=== PATIENT | female | born 1965 | race African-American/Black ===

== ENCOUNTER 2016-11-14 13:51 | Emergency (ER) | payer MEDICARE, OTHER ==
[~2016-11-14] VITALS: Ht 170.2 cm; Wt 90.0 kg
[~2016-11-14 13:51] MED LIST: ALBUAER3 INH; AMLO5TAB2 PO; BACL10TA PO; CLON0.5T PO; COZA100T PO; DAPA1TAB3 PO; DYAZ37.5 PO; FLUT50SP EACH NARE; GABA400C5 PO; HYDR-3366 PO; KEPP10002 PO; LANTUS2P SQ; LISI-515 PO; SIMV40TA PO; VORT1TAB PO
[2016-11-14 13:54] VITALS: BP 145/88; PULSE 70; RESP 20; TEMP 97.9; O2SAT 98
--- NOTE | 2016-11-14 14:18 | PD ---
Physical Exam Date Seen by Provider: Nov 14, 2016 Time Seen by Provider: 14:14 Narrative 51-year-old Afro-[place] diabetic female is emergency part with multiple skin complaints. Patient has a blister on her right lower stomach, as well as multiple "knots" to the scalp, both axilla, and pubic area. Patient denies fever, chills, but is concerned that she is diabetic. She is not sure she's had any drainage from any of them. No history of MRSA in the past. Pain is a 7 out of 10. Urine is ordered. Vital signs are stable. Patient is awaiting med bed placement. Data Data Last Documented VS Vital Signs Date Time Temp Pulse Resp B/P (MAP) Pulse Ox O2 Delivery O2 Flow Rate FiO2 11/14/16 13:54 97.9 70 20 145/88 (107) 98 Room Air [facility] Medical Record Reviewed: Yes Supervised Visit with ALEK: Yes Condition: Stable Jesús Tan Nov 14, 2016 14:18
[2016-11-14] MEDS ORDERED: BENA25CA4 PO (15:10)
--- NOTE | 2016-11-14 15:23 | PD ---
HPI Chief Complaint: Skin Problem Time Seen by Provider: 14:45 Travel History International Travel<30 days: No Contact w/Intl Traveler<30days: No Traveled to known affect area: No History of Present Illness HPI 51-year-old -Ni[place] female patient presents to emergency department for evaluation of skin concerns that recently populated. Patient has 1 papule in each axilla. The papules appears to have a ruelas in bilateral axilla. The papules are small and itchy in nature. Patient has another small papule on the right lateral aspect of the frontal portion of the scalp that is also very itchy in nature. There are no signs or symptoms of infection, including warmth, erythema, swelling or purulent drainage. Patient has what appears to be a sebaceous cyst in the right lower quadrant of the abdomen. This sebaceous cysts has no signs or symptoms of infection, erythema, warmth, swelling or purulent drainage. Patient states ate she does have a history of diabetes and that is what is concerning her with these new skin complaints. Patient denies any history of MRSA. Patient denies any chest pain, shortness breath, fevers, chills, malaise, abdominal pain, nausea, vomiting, diarrhea or lightheadedness. PFSH Past Medical History Arthritis: Yes Asthma: Yes Blood Disorders: No Anxiety: Yes Depression: Yes Cancer: No Cardiovascular Problems: Yes High Cholesterol: Yes Diabetes: Yes Patient Takes Glucophage: No Endocrine: Yes Gastrointestinal Disorders: Yes GERD: Yes Glaucoma: No Genitourinary: No Hepatitis: No Hiatal Hernia: No Hypertension: Yes Immune Disorder: No Medical other: Yes (GERD) Musculoskeletal: Yes Neurologic: No Psychiatric: Yes Reproductive: No Respiratory: Yes Thyroid Disease: No Tetanus Vaccination: < 5 Years Influenza Vaccination: No ?: Not Menopausal: Yes Past Surgical History Abdominal Surgery: No Cardiac Surgery: No Ear Surgery: No Endocrine Surgery: No Eye Surgery: No Genitourinary Surgery: No Gynecologic Surgery: Yes (hysterectomy) Oral Surgery: No Pacemaker: No Thoracic Surgery: No Other Surgery: Yes Social History Alcohol Use: No Tobacco Use: No (quit 10 years ago) Substance Use: No Allergies-Medications (Allergen,Severity, Reaction): Coded Allergies: lisinopril (Verified Adverse Reaction, Intermediate, COUGH, 11/14/16) Reported Meds & Prescriptions Reported Meds & Active Scripts Active Reported Trintellix (Vortioxetine) 5 Mg Tab 5 Mg PO DAILY Simvastatin 40 Mg Tab 40 Mg PO HS Lantus Inj (Insulin Glargine) 100 Unit/Ml Inj 40 SQ BID Keppra (Levetiracetam) 1,000 Mg Tab 1,000 Mg PO BID Fluticasone Nasal [place] 50 Mcg/Act Naspr 50 Mcg EACH NARE BID 50 mcg/spray Farxiga (Dapagliflozin) 10 Mg Tab 10 Mg PO DAILY Clonazepam 0.5 Mg Tab 0.5 Mg PO DAILY Baclofen 10 Mg Tab 10 Mg PO HS PRN Amlodipine (Amlodipine Besylate) 5 Mg Tab 5 Mg PO BID Dyazide (Triamterene-Hydrochlorothiazide) 37.5-25 Mg Cap 1 Cap PO DAILY Cozaar (Losartan Potassium) 100 Mg Tab 100 Mg PO DAILY Lisinopril 20 Mg Tab 40 Mg PO DAILY [place] (Hydrocodone-Acetaminophen) 10-325 Mg Tab 1 Tab PO BID PRN Gabapentin 400 Mg Cap 400 Cap PO BID Proair Hfa 8.5 GM Inh (Albuterol Sulfate) 90 Mcg/Act Aer 2 Puff INH 2 PUFFS PRIOR TO EXERCISE Review of Systems Except as stated in HPI: all other systems reviewed are Neg Physical Exam Narrative GENERAL: Well-nourished well-developed 51-year-old -[place] female in no acute distress SKIN: Focused skin assessment warm/dry. Single papule ruelas noted in bilateral axilla. Single papule ruelas noted in the right lateral aspect of the frontal region of the scalp. Sebaceous cyst noted to right lower abdominal region. No signs or symptoms of infection in the skin or cellulitis. HEAD: Atraumatic. Normocephalic. EYES: Pupils equal and round. No scleral icterus. No injection or drainage. ENT: No nasal bleeding or discharge. Mucous membranes pink and moist. NECK: Trachea midline. No JVD. CARDIOVASCULAR: Regular rate and rhythm. No murmur appreciated. RESPIRATORY: No accessory muscle use. Clear to auscultation. Breath sounds equal bilaterally. GASTROINTESTINAL: Abdomen soft, non-tender, nondistended. Hepatic and splenic margins not palpable. MUSCULOSKELETAL: No obvious deformities. No clubbing. No cyanosis. No edema. NEUROLOGICAL: Awake and alert. No obvious cranial nerve deficits. Motor grossly within normal limits. Normal speech. PSYCHIATRIC: Appropriate mood and affect; insight and judgment normal. Data Data Last Documented VS Vital Signs Date Time Temp Pulse Resp B/P (MAP) Pulse Ox O2 Delivery O2 Flow Rate FiO2 11/14/16 13:54 97.9 70 20 145/88 (107) 98 Room Air Orders Orders Urinalysis - C+S If Indicated (11/14/16 14:18) MDM Medical Decision Making Medical Screen Exam Complete: Yes Emergency Medical Condition: Yes Medical Record Reviewed: Yes Interpretation(s) Afebrile, no tachycardia Differential Diagnosis Differential diagnosis includes but are not limited to bug bites, closed comedones, contact dermatitis, abscess, cellulitis Narrative Course 51-year-old female in no acute distress presents to the emergency department for evaluation of multiple skin complaints. Patient states it is only medical with a since she first noticed the papules. She has one papule that appears to have a ruelas in each axilla. She also has one papule in the right lateral aspect of the frontal portion of the scalp. The patient describes these papules is itchy in nature. There are no signs or symptoms of infection at this time. Patient also has a sebaceous cyst to her right lower abdomen that appeared around the same time as the papules. There is no signs or symptoms of infection with a sebaceous cysts at this time. Patient was concerned with these new skin complaints due to her history of diabetes. Patient instructed not to scratch these papules due to the increased risk of infection. Patient denies any chest pain, shortness breath, fevers, chills, malaise, abdominal pain , nausea, vomiting or diarrhea. Patient will be discharged home with a prescription for Benadryl and instructions to use calamine lotion for its relief until the papules heals. Patient instructed to return the emergency Department with any worsening condition or signs or symptoms of infection. Patient agrees with this plan of care. Diagnosis Primary Impression: Acute papular eruption of skin Referrals: Primary Care Physician Patient Instructions: General Instructions, Itchy Skin (DC) Additional Instructions: Do not scratch these papules as that will increase the risk for infection. Take Benadryl as directed as needed for itch relief until papules heal. Use calamine lotion for itch relief until papules heal. Avoid heat to the itchy papules as heat may increase itchy sensation. Cool compresses can help to relieve itch and locally calm the skin. Return to the emergency Department with any worsening condition or signs or symptoms of infection. Med/Other Pt SpecificInfo: Prescription(s) given Scripts Diphenhydramine HCl (Benadryl Allergy) 25 Mg Cap 1 CAP PO Q4-6H Y for ITCHING, #10 Prov: Priti Zhou 11/14/16 Disposition: 01 DISCHARGE HOME Condition: Stable Priti Zhou Nov 14, 2016 15:23
[2016-11-14 15:26] VITALS: BP 138/85; TEMP 97.8
== END 2016-11-14 15:28 | disposition home or self-care (01) ==
LOC: NEPD 13:51
DX: R23.8 Other skin changes (principal); E11.9 Type 2 diabetes mellitus without complications; Z79.4 Long term (current) use of insulin
CPT/HCPCS: 99283

== ENCOUNTER 2017-03-23 09:44 | Emergency (ER) | payer MEDICARE, OTHER ==
[~2017-03-23] VITALS: Ht 167.6 cm; Wt 95.0 kg
[~2017-03-23 09:44] MED LIST changes: +BENA25CA4 PO
[2017-03-23 09:46] VITALS: BP 177/90; PULSE 63; RESP 17; TEMP 98; O2SAT 100
[2017-03-23] MEDS ORDERED: MELO15TA20 PO (11:48)
[2017-03-23] MEDS ORDERED: ROBA750T PO (11:48)
--- NOTE | 2017-03-23 11:49 | PD ---
HPI Chief Complaint: Back/ Neck Pain or Injury Time Seen by Provider: 11:26 Travel History International Travel<30 days: No Contact w/Intl Traveler<30days: No Traveled to known affect area: No History of Present Illness HPI This is a 51-year-old female here with low back pain dating down into both legs. Duration 3 days. She reports history of chronic low back pain. This is usually managed by ibuprofen or Aleve. She reports this is similar to her chronic back pain just more severe. She denies fever, chills, incontinence, saddle anesthesia, paresthesia or weakness of the extremities. It is moderate. Worsened by movement and slightly improved with rest. PFSH Past Medical History Arthritis: Yes Asthma: Yes Blood Disorders: No Anxiety: Yes Depression: Yes Cancer: No Cardiovascular Problems: Yes (HTN) High Cholesterol: Yes Diabetes: Yes (TYPE 2) Patient Takes Glucophage: No Endocrine: Yes Gastrointestinal Disorders: Yes GERD: Yes Glaucoma: No Genitourinary: No Hepatitis: No Hiatal Hernia: No Hypertension: Yes Immune Disorder: No Medical other: Yes (GERD) Musculoskeletal: Yes Neurologic: No Psychiatric: Yes Reproductive: No Respiratory: Yes Thyroid Disease: No Tetanus Vaccination: Unknown ?: Not Menopausal: Yes Past Surgical History Abdominal Surgery: No Cardiac Surgery: No Ear Surgery: No Endocrine Surgery: No Eye Surgery: No Genitourinary Surgery: No Gynecologic Surgery: Yes (hysterectomy) Oral Surgery: No Pacemaker: No Thoracic Surgery: No Other Surgery: Yes Social History Alcohol Use: No Tobacco Use: No (quit 10 years ago) Substance Use: No Allergies-Medications (Allergen,Severity, Reaction): Coded Allergies: lisinopril (Verified Adverse Reaction, Intermediate, COUGH, 03/23/17) Reported Meds & Prescriptions Reported Meds & Active Scripts Active Benadryl Allergy (Diphenhydramine HCl) 25 Mg Cap 1 Cap PO Q4-6H PRN Reported Trintellix (Vortioxetine) 5 Mg Tab 5 Mg PO DAILY Simvastatin 40 Mg Tab 40 Mg PO HS Lantus Inj (Insulin Glargine) 100 Unit/Ml Inj 40 SQ BID Keppra (Levetiracetam) 1,000 Mg Tab 1,000 Mg PO BID Fluticasone Nasal [place] 50 Mcg/Act Naspr 50 Mcg EACH NARE BID 50 mcg/spray Farxiga (Dapagliflozin) 10 Mg Tab 10 Mg PO DAILY Clonazepam 0.5 Mg Tab 0.5 Mg PO DAILY Baclofen 10 Mg Tab 10 Mg PO HS PRN Amlodipine (Amlodipine Besylate) 5 Mg Tab 5 Mg PO BID Dyazide (Triamterene-Hydrochlorothiazide) 37.5-25 Mg Cap 1 Cap PO DAILY Cozaar (Losartan Potassium) 100 Mg Tab 100 Mg PO DAILY Lisinopril 20 Mg Tab 40 Mg PO DAILY [place] (Hydrocodone-Acetaminophen) 10-325 Mg Tab 1 Tab PO BID PRN Gabapentin 400 Mg Cap 400 Cap PO BID Proair Hfa 8.5 GM Inh (Albuterol Sulfate) 90 Mcg/Act Aer 2 Puff INH 2 PUFFS PRIOR TO EXERCISE Review of Systems Except as stated in HPI: all other systems reviewed are Neg General / Constitutional: No: Fever Physical Exam Narrative GENERAL: Alert and well-appearing 51-year-old female SKIN: Warm and dry. HEAD: Normocephalic. EYES:No injection or drainage. NECK: Supple, trachea midline. GASTROINTESTINAL: Abdomen soft, non-tender, nondistended. MUSCULOSKELETAL: No cyanosis, or edema. Normal strength and sensation in lower extremities. Patient is a . BACK: + Tenderness to the lumbar paraspinous musculature. No point tenderness of the midline spine. Without obvious deformity. No CVA tenderness. Data Data Last Documented VS Vital Signs Date Time Temp Pulse Resp B/P (MAP) Pulse Ox O2 Delivery O2 Flow Rate FiO2 03/23/17 09:46 98.0 63 17 177/90 (119) 100 MDM Medical Decision Making Medical Screen Exam Complete: Yes Emergency Medical Condition: Yes Differential Diagnosis Lumbar strain, degenerative disc disease, acute on chronic low back pain Narrative Course [id number] female here with acute on chronic low back pain. She has a normal neurologic exam. Vital signs are stable. Patient be treated for lumbar strain Diagnosis Primary Impression: Low back pain Qualified Codes: M54.5 - Low back pain Referrals: Pain Management Additional Instructions: Medications as prescribed. Follow-up with her primary doctor. Use ice or heat for comfort. Scripts Methocarbamol (Robaxin) 750 Mg Tab 750 MG PO QID for Muscle Spasm, #14 TAB 0 Refills Prov: Kenya Pelaez 03/23/17 Meloxicam (Meloxicam) 15 Mg Tab 15 MG PO DAILY for Arthritis Pain, #30 TAB 0 Refills Prov: Kenya Pelaez 03/23/17 Disposition: 01 DISCHARGE HOME Condition: Stable Kenya Pelaez Mar 23, 2017 11:49
[2017-03-23] MEDS ORDERED: KETOROLAC TROMETHAMINE 60 MG/2 ML (IM) VIAL IM ONE (12:00)
== END 2017-03-23 12:07 | disposition home or self-care (01) ==
LOC: NEPK 09:44
DX: M54.5 Low back pain (principal); G89.29 Other chronic pain; E11.9 Type 2 diabetes mellitus without complications; E78.00 Pure hypercholesterolemia, unspecified; I10 Essential (primary) hypertension; K21.9 Gastro-esophageal reflux disease without esophagitis; J45.909 Unspecified asthma, uncomplicated; Z79.4 Long term (current) use of insulin; Z87.891 Personal history of nicotine dependence
CPT/HCPCS: 96372; 99284; J1885

== ENCOUNTER 2017-05-04 18:22 | Emergency (ER) | payer MEDICARE, OTHER ==
[~2017-05-04 18:22] MED LIST changes: +MELO15TA20 PO; +ROBA750T PO
[2017-05-04 18:30] VITALS: BP 177/87; PULSE 79; RESP 18; TEMP 99.4; O2SAT 99
--- NOTE | 2017-05-04 19:17 | RADRPT ---
EXAM DATE/TIME: 05/04/2017 18:56 [facility] COMPARISON: No previous studies available for comparison. INDICATIONS : Headaches starting Wednesday,frontal area RADIATION DOSE: 36.46 CTDIvol (mGy) MEDICAL HISTORY : Diabetes mellitus type 2. Cardiovascular disease Hypertension.Ulcer SURGICAL HISTORY : Hysterectomy. ENCOUNTER: Initial ACUITY: 1 day PAIN SCALE: 5/10 LOCATION: Bilateral cranial TECHNIQUE: Multiple contiguous axial images were obtained of the head. Using automated exposure control and adj ustment of the mA and/or kV according to patient size, radiation dose was kept as low as reasonably a chievable to obtain optimal diagnostic quality images. DICOM format image data is available electro nically for review and comparison. FINDINGS: CEREBRUM: The ventricles are normal for age. No evidence of midline shift, mass lesion, hemorrhage or acute in farction. No extra-axial fluid collections are seen. POSTERIOR FOSSA: The cerebellum and brainstem are intact. The 4th ventricle is midline. The cerebellopontine angle i s unremarkable. EXTRACRANIAL: The visualized portion of the orbits is intact. Visualized sinuses and mastoid air cells are clear. SKULL: The calvaria is intact. No evidence of skull fracture. CONCLUSION: Negative noncontrast head CT. Rey Wells MD on May 04, 2017 at 19:14 Board Certified Radiologist. This report was verified electronically.
--- NOTE | 2017-05-04 20:34 | PD ---
HPI Chief Complaint: Headache Time Seen by Provider: 18:29 Travel History International Travel<30 days: No Contact w/Intl Traveler<30days: No Traveled to known affect area: No History of Present Illness HPI Pt is a 51-year-old female presented to the emergency for evaluation of headache , nausea, diaphoresis. Patient states the headache started Wednesday after she had a seizure. Patient has a history of seizures, she reports compliance with her medications. Patient states she is on Keppra and Vimpat. She states that she has been under increased stress since the in the family on Wednesday. Symptom onset was sudden, there are no alleviating factors. Symptoms severity is moderate. She denies any weakness, numbness, speech abnormality, photophobia. PFSH Past Medical History Arthritis: Yes Asthma: Yes Blood Disorders: No Anxiety: Yes Depression: Yes Cancer: No Cardiovascular Problems: Yes (HTN) High Cholesterol: Yes Diabetes: Yes (TYPE 2) Endocrine: Yes Gastrointestinal Disorders: Yes GERD: Yes Glaucoma: No Genitourinary: No Hepatitis: No Hiatal Hernia: No Hypertension: Yes Immune Disorder: No Musculoskeletal: Yes Neurologic: No Psychiatric: Yes Reproductive: No Respiratory: Yes Thyroid Disease: No Menopausal: Yes Past Surgical History Abdominal Surgery: No Cardiac Surgery: No Ear Surgery: No Endocrine Surgery: No Eye Surgery: No Genitourinary Surgery: No Gynecologic Surgery: Yes (hysterectomy) Oral Surgery: No Pacemaker: No Thoracic Surgery: No Other Surgery: Yes Social History Alcohol Use: No Tobacco Use: No (quit 10 years ago) Substance Use: No Allergies-Medications (Allergen,Severity, Reaction): Coded Allergies: lisinopril (Verified Adverse Reaction, Intermediate, COUGH, 03/23/17) Reported Meds & Prescriptions Reported Meds & Active Scripts Active Robaxin (Methocarbamol) 750 Mg Tab 750 Mg PO QID Meloxicam 15 Mg Tab 15 Mg PO DAILY Benadryl Allergy (Diphenhydramine HCl) 25 Mg Cap 1 Cap PO Q4-6H PRN Reported Trintellix (Vortioxetine) 5 Mg Tab 5 Mg PO DAILY Simvastatin 40 Mg Tab 40 Mg PO HS Lantus Inj (Insulin Glargine) 100 Unit/Ml Inj 40 SQ BID Keppra (Levetiracetam) 1,000 Mg Tab 1,000 Mg PO BID Fluticasone Nasal [place] 50 Mcg/Act Naspr 50 Mcg EACH NARE BID 50 mcg/spray Farxiga (Dapagliflozin) 10 Mg Tab 10 Mg PO DAILY Clonazepam 0.5 Mg Tab 0.5 Mg PO DAILY Baclofen 10 Mg Tab 10 Mg PO HS PRN Amlodipine (Amlodipine Besylate) 5 Mg Tab 5 Mg PO BID Dyazide (Triamterene-Hydrochlorothiazide) 37.5-25 Mg Cap 1 Cap PO DAILY Cozaar (Losartan Potassium) 100 Mg Tab 100 Mg PO DAILY Lisinopril 20 Mg Tab 40 Mg PO DAILY [place] (Hydrocodone-Acetaminophen) 10-325 Mg Tab 1 Tab PO BID PRN Gabapentin 400 Mg Cap 400 Cap PO BID Proair Hfa 8.5 GM Inh (Albuterol Sulfate) 90 Mcg/Act Aer 2 Puff INH 2 PUFFS PRIOR TO EXERCISE Review of Systems Except as stated in HPI: all other systems reviewed are Neg Eyes: No: Photophobia HENT: Positive: Headaches, No: Neck Pain Cardiovascular: No: Chest Pain or Discomfort Respiratory: No: Shortness of Breath Gastrointestinal: Positive: Nausea Neurologic: Positive: Seizures Physical Exam Narrative GENERAL: Well-developed, well-nourished, alert female. Presenting in no acute distress. SKIN: Warm and dry. HEAD: Normocephalic. EYES: No scleral icterus. No injection or drainage. NECK: Supple, trachea midline. No JVD or lymphadenopathy. CARDIOVASCULAR: Regular rate RESPIRATORY:No accessory muscle use. Data Data Last Documented VS Vital Signs Date Time Temp Pulse Resp B/P (MAP) Pulse Ox O2 Delivery O2 Flow Rate FiO2 05/04/17 18:30 99.4 79 18 177/87 (117) 99 Orders Orders Complete Blood Count With Diff (05/04/17 18:33) Ct Brain W/O Iv Contrast(Rout) (05/04/17 ) Comprehensive Metabolic Panel (05/04/17 18:33) Labs Laboratory Tests Test 05/04/17 20:28 White Blood Count 8.5 TH/MM3 Red Blood Count 4.90 MIL/MM3 Hemoglobin 13.1 GM/DL Hematocrit 41.1 % Mean Corpuscular Volume 83.8 FL Mean Corpuscular Hemoglobin 26.8 PG Mean Corpuscular Hemoglobin Concent 31.9 % Red Cell Distribution Width 15.1 % Platelet Count 412 TH/MM3 Mean Platelet Volume 8.9 FL Neutrophils (%) (Auto) 48.0 % Lymphocytes (%) (Auto) 46.3 % Monocytes (%) (Auto) 4.6 % Eosinophils (%) (Auto) 0.7 % Basophils (%) (Auto) 0.4 % Neutrophils # (Auto) 4.1 TH/MM3 Lymphocytes # (Auto) 3.9 TH/MM3 Monocytes # (Auto) 0.4 TH/MM3 Eosinophils # (Auto) 0.1 TH/MM3 Basophils # (Auto) 0.0 TH/MM3 CBC Comment DIFF FINAL Differential Comment Blood Urea Nitrogen 12 MG/DL Creatinine 0.88 MG/DL Random Glucose 122 MG/DL Albumin 4.1 GM/DL Calcium Level 9.6 MG/DL Aspartate Amino Transf (AST/SGOT) 20 U/L Sodium Level 138 MEQ/L Potassium Level 3.8 MEQ/L Chloride Level 101 MEQ/L Carbon Dioxide Level 26.9 MEQ/L Anion Gap 10 MEQ/L Estimat Glomerular Filtration Rate 82 ML/MIN MDM Medical Decision Making Medical Screen Exam Complete: Yes Emergency Medical Condition: Yes Interpretation(s) Laboratory Tests Test 05/04/17 20:28 White Blood Count 8.5 TH/MM3 Red Blood Count 4.90 MIL/MM3 Hemoglobin 13.1 GM/DL Hematocrit 41.1 % Mean Corpuscular Volume 83.8 FL Mean Corpuscular Hemoglobin 26.8 PG Mean Corpuscular Hemoglobin Concent 31.9 % Red Cell Distribution Width 15.1 % Platelet Count 412 TH/MM3 Mean Platelet Volume 8.9 FL Neutrophils (%) (Auto) 48.0 % Lymphocytes (%) (Auto) 46.3 % Monocytes (%) (Auto) 4.6 % Eosinophils (%) (Auto) 0.7 % Basophils (%) (Auto) 0.4 % Neutrophils # (Auto) 4.1 TH/MM3 Lymphocytes # (Auto) 3.9 TH/MM3 Monocytes # (Auto) 0.4 TH/MM3 Eosinophils # (Auto) 0.1 TH/MM3 Basophils # (Auto) 0.0 TH/MM3 CBC Comment DIFF FINAL Differential Comment Blood Urea Nitrogen 12 MG/DL Creatinine 0.88 MG/DL Random Glucose 122 MG/DL Albumin 4.1 GM/DL Calcium Level 9.6 MG/DL Aspartate Amino Transf (AST/SGOT) 20 U/L Sodium Level 138 MEQ/L Potassium Level 3.8 MEQ/L Chloride Level 101 MEQ/L Carbon Dioxide Level 26.9 MEQ/L Anion Gap 10 MEQ/L Estimat Glomerular Filtration Rate 82 ML/MIN Vital Signs Date Time Temp Pulse Resp B/P (MAP) Pulse Ox O2 Delivery O2 Flow Rate FiO2 05/04/17 18:30 99.4 79 18 177/87 (117) 99 Differential Diagnosis CVA versus TIA versus seizure versus metabolic abnormality versus migraine versus other Narrative Course Patient is a 51-year-old female presenting for evaluation of a headache secondary to seizure she experienced on Wednesday. Patient's vital signs are stable, labs and imaging ordered and pending. Patient was called the place and it is no longer found in the emergency department. Patient left AMA. Since labs and imaging were reviewed after she left AMA, CT scan of the brain with no acute abnormality. Labs with no acute findings. Diagnosis Primary Impression: Left against medical advice Sarika Sahu May 04, 2017 20:34
[2017-05-04 21:32] LABS: AUTOMATED NEUTROPHIL # 4.1 TH/MM3 (1.8-7.7); BASOPHIL % 0.4 % (0.0-2.0); EOSINOPHIL # 0.1 TH/MM3 (0-0.4); EOSINOPHIL % 0.7 % (0.0-4.0); HEMATOCRIT 41.1 % (35.0-46.0); HEMOGLOBIN 13.1 GM/DL (11.6-15.3); LYMPH % 46.3 % (9.0-44.0); LYMPHOCYTE # 3.9 TH/MM3 (1.0-4.8); MEAN CELL VOLUME 83.8 FL (80.0-100.0); MEAN CORPUSCULAR HEMOGLOBIN 26.8 PG (27.0-34.0); MEAN CORPUSCULAR HGB CONC 31.9 % (32.0-36.0); MEAN PLATELET VOLUME 8.9 FL (7.0-11.0); MONO % 4.6 % (0.0-8.0); MONOCYTE # 0.4 TH/MM3 (0-0.9); PLATELET COUNT 412 TH/MM3 (150-450); RED CELL DISTRIBUTION WIDTH 15.1 % (11.6-17.2); WHITE BLOOD COUNT 8.5 TH/MM3 (4.0-11.0)
[2017-05-04 21:43] LABS: ALBUMIN 4.1 GM/DL (3.4-5.0); AST (GOT) 20 U/L (15-37); BICARBONATE 26.9 MEQ/L (21.0-32.0); BLOOD UREA NITROGEN 12 MG/DL (7-18); CALCIUM 9.6 MG/DL (8.5-10.1); CHLORIDE 101 MEQ/L (98-107); CREATININE 0.88 MG/DL (0.50-1.00); GLOMERULAR FILTRATION RATE 82 ML/MIN (>89); GLUCOSE,RANDOM 122 MG/DL (74-106); SODIUM (NA) 138 MEQ/L (136-145)
[2017-05-04 21:47] LABS: ALKALINE PHOSPHATASE 164 U/L (45-117); ALT (GPT) 21 U/L (10-53); TOTAL BILIRUBIN ADULT 0.3 MG/DL (0.2-1.0); TOTAL PROTEIN 8.6 GM/DL (6.4-8.2)
== END 2017-05-04 20:26 | disposition left against medical advice (07) ==
LOC: NED 18:22
DX: R51 Headache (principal); E11.9 Type 2 diabetes mellitus without complications; I10 Essential (primary) hypertension; Z79.4 Long term (current) use of insulin; Z87.891 Personal history of nicotine dependence
CPT/HCPCS: 70450; 80053; 85025; 99284

== ENCOUNTER 2017-07-14 19:23 | Emergency (ER) | payer MEDICARE, OTHER ==
[~2017-07-14] VITALS: Ht 167.6 cm; Wt 106.0 kg
[2017-07-14 19:43] VITALS: BP 147/91; PULSE 88; RESP 16; TEMP 98.2; O2SAT 100
[2017-07-14] MEDS ORDERED: ORPHENADRINE INJ 60 MG/2 ML AMP IM ONE (20:45)
[2017-07-14] MEDS ORDERED: KETOROLAC TROMETHAMINE 60 MG/2 ML (IM) VIAL IM ONE (20:45)
[2017-07-14] MEDS ORDERED: DICL50TA PO (20:51)
[2017-07-14] MEDS ORDERED: ROBA750T PO (20:51)
--- NOTE | 2017-07-14 20:52 | PD ---
HPI Chief Complaint: Back/ Neck Pain or Injury Time Seen by Provider: 20:42 Travel History International Travel<30 days: No Contact w/Intl Traveler<30days: No Traveled to known affect area: No History of Present Illness HPI 51-year-old female presents to the emergency department for evaluation of chronic low back pain and chronic right wrist pain. Patient reports history degenerative disc disease and tendinitis to the right arm. She is to undergo surgery by Dr. Ruvalcaba for the right wrist. She is having acute exacerbation of her chronic back pain. She denies a traumatic injury. No fevers or chills. No loss of bowel or bladder control. No saddle anesthesias. Patient took a tramadol approximately 2 hours ago for her pain. Patient also reports history of diabetes, hypertension, seizures. Movement will exacerbate pain. No alleviating factors. Current pain is 10/10 to the lower back that radiates to the bilateral thighs. Mild severity. PFSH Past Medical History Arthritis: Yes Asthma: Yes Blood Disorders: No Anxiety: Yes Depression: Yes Cancer: No Cardiovascular Problems: Yes (HTN) High Cholesterol: Yes Diabetes: Yes (TYPE 2) Endocrine: Yes Gastrointestinal Disorders: Yes GERD: Yes Glaucoma: No Genitourinary: No Hepatitis: No Hiatal Hernia: No Hypertension: Yes Immune Disorder: No Musculoskeletal: Yes Neurologic: No Psychiatric: Yes Reproductive: No Respiratory: Yes Thyroid Disease: No Menopausal: Yes Past Surgical History Abdominal Surgery: No Cardiac Surgery: No Ear Surgery: No Endocrine Surgery: No Eye Surgery: No Genitourinary Surgery: No Gynecologic Surgery: Yes (hysterectomy) Oral Surgery: No Pacemaker: No Thoracic Surgery: No Other Surgery: Yes Social History Alcohol Use: No Tobacco Use: No (quit 10 years ago) Substance Use: No Allergies-Medications (Allergen,Severity, Reaction): Coded Allergies: lisinopril (Verified Adverse Reaction, Intermediate, COUGH, 07/14/17) Reported Meds & Prescriptions Reported Meds & Active Scripts Active Robaxin (Methocarbamol) 750 Mg Tab 750 Mg PO QID Meloxicam 15 Mg Tab 15 Mg PO DAILY Benadryl Allergy (Diphenhydramine HCl) 25 Mg Cap 1 Cap PO Q4-6H PRN Reported Trintellix (Vortioxetine) 5 Mg Tab 5 Mg PO DAILY Simvastatin 40 Mg Tab 40 Mg PO HS Lantus Inj (Insulin Glargine) 100 Unit/Ml Inj 40 SQ BID Keppra (Levetiracetam) 1,000 Mg Tab 1,000 Mg PO BID Fluticasone Nasal [place] 50 Mcg/Act Naspr 50 Mcg EACH NARE BID 50 mcg/spray Farxiga (Dapagliflozin) 10 Mg Tab 10 Mg PO DAILY Clonazepam 0.5 Mg Tab 0.5 Mg PO DAILY Baclofen 10 Mg Tab 10 Mg PO HS PRN Amlodipine (Amlodipine Besylate) 5 Mg Tab 5 Mg PO BID Dyazide (Triamterene-Hydrochlorothiazide) 37.5-25 Mg Cap 1 Cap PO DAILY Cozaar (Losartan Potassium) 100 Mg Tab 100 Mg PO DAILY Lisinopril 20 Mg Tab 40 Mg PO DAILY [place] (Hydrocodone-Acetaminophen) 10-325 Mg Tab 1 Tab PO BID PRN Gabapentin 400 Mg Cap 400 Cap PO BID Proair Hfa 8.5 GM Inh (Albuterol Sulfate) 90 Mcg/Act Aer 2 Puff INH 2 PUFFS PRIOR TO EXERCISE Review of Systems Except as stated in HPI: all other systems reviewed are Neg Physical Exam Narrative GENERAL: Well-nourished, well-developed female patient, ambulatory. Afebrile. SKIN: Focused skin assessment warm/dry. HEAD: Normocephalic. Atraumatic. EYES: No scleral icterus. No injection or drainage. NECK: Supple, trachea midline. No JVD or lymphadenopathy. CARDIOVASCULAR: Regular rate and rhythm without murmurs, gallops, or rubs. Bilateral radial and pedal pulses are 2+. RESPIRATORY: Breath sounds equal bilaterally. No accessory muscle use. Lung sounds are clear to auscultation. GASTROINTESTINAL: Abdomen soft, non-tender, nondistended. MUSCULOSKELETAL: No cyanosis, or edema. Bilateral upper and lower extremity strength 5/5. All extremities are neurovascularly intact. BACK: Nontender without obvious deformity. No CVA tenderness. No bony step-off or crepitus. Data Data Last Documented VS Vital Signs Date Time Temp Pulse Resp B/P (MAP) Pulse Ox O2 Delivery O2 Flow Rate FiO2 07/14/17 19:43 98.2 88 16 147/91 (109) 100 Orders Orders Ketorolac Inj (Toradol Inj) (07/14/17 20:45) Orphenadrine Inj (Norflex Inj) (07/14/17 20:45) MDM Medical Decision Making Medical Screen Exam Complete: Yes Emergency Medical Condition: Yes Medical Record Reviewed: Yes Differential Diagnosis Acute exacerbation of chronic back pain versus sciatica versus muscle strain versus herniated disc Narrative Course 51-year-old female presents to the emergency department for evaluation of low back pain with history of back pain. No red flag symptoms. No recent injury. Patient is given Toradol 60 mg IM, Norflex 60 mg IM. Patient will be discharged prescription for diclofenac and Robaxin. She is encouraged to follow with her primary care physician return here for any acute worsening of symptoms. The patient was discharged in stable condition with instructions, including return instructions and follow up instructions Diagnosis Primary Impression: Acute exacerbation of chronic low back pain Referrals: Primary Care Physician call for appointment Patient Instructions: Chronic Back Pain (ED), General Instructions Additional Instructions: Take diclofenac as directed as needed with food for pain. Do not take with other anti-inflammatories including ibuprofen and naproxen. Take Robaxin as directed as needed. Heating pad on low for 20 minutes 4-5 times daily. Follow-up with a primary care physician. Return to the emergency department for any acute worsening of symptoms. Med/Other Pt SpecificInfo: Prescription(s) given Scripts Methocarbamol (Robaxin) 750 Mg Tab 750 MG PO TID Y for MUSCLE SPASM, #21 TAB 0 Refills Prov: Fanny Aguillon 07/14/17 Diclofenac Potassium (Diclofenac Potassium) 50 Mg Tab 50 MG PO TID Y for PAIN SCALE 1 TO 10, #21 TAB 0 Refills Prov: Fanny Aguillon 07/14/17 Disposition: 01 DISCHARGE HOME Condition: Stable Fanny Aguillon July 14, 2017 20:52
== END 2017-07-14 21:08 | disposition home or self-care (01) ==
LOC: NEPK 19:23
DX: M54.5 Low back pain (principal); G89.29 Other chronic pain; E11.9 Type 2 diabetes mellitus without complications; E78.00 Pure hypercholesterolemia, unspecified; I10 Essential (primary) hypertension; J45.909 Unspecified asthma, uncomplicated; Z79.4 Long term (current) use of insulin; Z87.891 Personal history of nicotine dependence
CPT/HCPCS: 96372; 99283; J1885; J2360

== ENCOUNTER 2017-07-31 23:04 | Emergency (ER) | payer MEDICARE, OTHER ==
[~2017-07-31] VITALS: Ht 170.2 cm; Wt 90.0 kg
[~2017-07-31 23:04] MED LIST changes: +DICL50TA PO
[2017-07-31 23:10] VITALS: BP 158/81; PULSE 77; RESP 14; TEMP 98; O2SAT 99
--- NOTE | 2017-07-31 23:27 | PD ---
HPI Chief Complaint: Seizure Time Seen by Provider: 23:12 Travel History International Travel<30 days: No Contact w/Intl Traveler<30days: No Traveled to known affect area: No History of Present Illness HPI 51yo F with PMH of DM and seizure on keppra and vimpat here for evaluation after witnessed seizure at home. As per EVAC, pt got up from bed but had a witnessed generalized tonic clonic seizure that lasted a few minutes and fell back onto the bed. Pt did not hit her head on the floor or have any head trauma. She does have some frontal headache now. Denies any visual changes, chest pain, sob, vomiting, abdominal pain, focal weakness or numbness. Pt has been compliant with her keppra 1000mg BID and vimpat 100mg BID. She said she has been feeling nauseous for a few days now. PFSH Past Medical History Arthritis: Yes Asthma: Yes Blood Disorders: No Anxiety: Yes Depression: Yes Cancer: No Cardiovascular Problems: Yes (HTN) High Cholesterol: Yes Diabetes: Yes (TYPE 2) Patient Takes Glucophage: No Diminished Hearing: No Endocrine: Yes Gastrointestinal Disorders: Yes GERD: Yes Glaucoma: No Genitourinary: No Hepatitis: No Hiatal Hernia: No Hypertension: Yes Immune Disorder: No Medical other: Yes (GERD) Musculoskeletal: Yes Neurologic: No Psychiatric: Yes Reproductive: No Respiratory: Yes Thyroid Disease: No Tetanus Vaccination: Unknown ?: Not Menopausal: Yes Past Surgical History Abdominal Surgery: No Cardiac Surgery: No Ear Surgery: No Endocrine Surgery: No Eye Surgery: No Genitourinary Surgery: No Gynecologic Surgery: Yes (hysterectomy) Oral Surgery: No Pacemaker: No Thoracic Surgery: No Other Surgery: Yes Social History Alcohol Use: No Tobacco Use: No (quit 10 years ago) Substance Use: No Allergies-Medications (Allergen,Severity, Reaction): Coded Allergies: lisinopril (Verified Adverse Reaction, Intermediate, COUGH, 07/14/17) Reported Meds & Prescriptions Reported Meds & Active Scripts Active Robaxin (Methocarbamol) 750 Mg Tab 750 Mg PO TID PRN Diclofenac Potassium 50 Mg Tab 50 Mg PO TID PRN Meloxicam 15 Mg Tab 15 Mg PO DAILY Benadryl Allergy (Diphenhydramine HCl) 25 Mg Cap 1 Cap PO Q4-6H PRN Reported Trintellix (Vortioxetine) 5 Mg Tab 5 Mg PO DAILY Simvastatin 40 Mg Tab 40 Mg PO HS Keppra (Levetiracetam) 1,000 Mg Tab 1,000 Mg PO BID Fluticasone Nasal [place] 50 Mcg/Act Naspr 50 Mcg EACH NARE BID 50 mcg/spray Farxiga (Dapagliflozin) 10 Mg Tab 10 Mg PO DAILY Baclofen 10 Mg Tab 10 Mg PO HS PRN Amlodipine (Amlodipine Besylate) 5 Mg Tab 5 Mg PO BID Dyazide (Triamterene-Hydrochlorothiazide) 37.5-25 Mg Cap 1 Cap PO DAILY Cozaar (Losartan Potassium) 100 Mg Tab 100 Mg PO DAILY [place] (Hydrocodone-Acetaminophen) 10-325 Mg Tab 1 Tab PO BID PRN Gabapentin 400 Mg Cap 400 Cap PO BID Proair Hfa 8.5 GM Inh (Albuterol Sulfate) 90 Mcg/Act Aer 2 Puff INH 2 PUFFS PRIOR TO EXERCISE Review of Systems Except as stated in HPI: all other systems reviewed are Neg Physical Exam Narrative GENERAL: 51yo F not in distress. SKIN: Focused skin assessment warm/dry. HEAD: Atraumatic. Normocephalic. EYES: Pupils equal and round at 3mm bilaterally. EOMI. ENT: No nasal bleeding or discharge. Mucous membranes pink and moist. NECK: No midline ttp cervical spine. CARDIOVASCULAR: Regular rate and rhythm. No murmur appreciated. RESPIRATORY: No accessory muscle use. Clear to auscultation. Breath sounds equal bilaterally. GASTROINTESTINAL: Abdomen soft, non-tender, nondistended. No rebound tenderness or guarding. MUSCULOSKELETAL: No obvious deformities. No clubbing. No cyanosis. No edema. NEUROLOGICAL: Awake and alert. No obvious cranial nerve deficits. Motor grossly within normal limits in all extremities. Sensation intact. Normal speech. PSYCHIATRIC: Appropriate mood and affect; insight and judgment normal. Data Data Last Documented VS Vital Signs Date Time Temp Pulse Resp B/P (MAP) Pulse Ox O2 Delivery O2 Flow Rate FiO2 07/31/17 23:21 99 Room Air 07/31/17 23:10 98.0 77 14 158/81 (106) Orders Orders Complete Blood Count With Diff (07/31/17 23:25) Blood Glucose (07/31/17 23:25) Magnesium (Mg) (07/31/17 23:25) Lipase (07/31/17 23:25) Urinalysis - C+S If Indicated (07/31/17 23:25) ^ Seizure Precautions (07/31/17 23:25) Ondansetron Odt (Zofran Odt) (07/31/17 23:45) Acetaminophen (Tylenol) (07/31/17 23:45) Sodium Chlor 0.9% 1000 Ml Inj (Ns 1000 M (07/31/17 23:45) Levetiracetam Inj (Keppra Inj) (07/31/17 23:45) Comprehensive Metabolic Panel (07/31/17 23:40) Labs Laboratory Tests Test 07/31/17 23:40 08/01/17 00:20 White Blood Count 8.1 TH/MM3 Red Blood Count 4.40 MIL/MM3 Hemoglobin 12.1 GM/DL Hematocrit 36.2 % Mean Corpuscular Volume 82.2 FL Mean Corpuscular Hemoglobin 27.6 PG Mean Corpuscular Hemoglobin Concent 33.5 % Red Cell Distribution Width 14.8 % Platelet Count 372 TH/MM3 Mean Platelet Volume 9.2 FL Neutrophils (%) (Auto) 49.7 % Lymphocytes (%) (Auto) 40.5 % Monocytes (%) (Auto) 8.6 % Eosinophils (%) (Auto) 0.6 % Basophils (%) (Auto) 0.6 % Neutrophils # (Auto) 4.0 TH/MM3 Lymphocytes # (Auto) 3.3 TH/MM3 Monocytes # (Auto) 0.7 TH/MM3 Eosinophils # (Auto) 0.0 TH/MM3 Basophils # (Auto) 0.1 TH/MM3 CBC Comment DIFF FINAL Differential Comment Blood Urea Nitrogen 17 MG/DL Creatinine 0.95 MG/DL Random Glucose 166 MG/DL Total Protein 7.7 GM/DL Albumin 3.6 GM/DL Calcium Level 8.4 MG/DL Magnesium Level 2.3 MG/DL Alkaline Phosphatase 139 U/L Aspartate Amino Transf (AST/SGOT) 19 U/L Alanine Aminotransferase (ALT/SGPT) 17 U/L Total Bilirubin 0.2 MG/DL Sodium Level 140 MEQ/L Potassium Level 3.4 MEQ/L Chloride Level 106 MEQ/L Carbon Dioxide Level 23.4 MEQ/L Anion Gap 11 MEQ/L Estimat Glomerular Filtration Rate 75 ML/MIN Lipase 151 U/L Urine Color LIGHT-YELLOW Urine Turbidity CLEAR Urine pH 5.0 Urine Specific [place] 1.039 Urine Protein NEG mg/dL Urine Glucose (UA) 1000 mg/dL Urine Ketones NEG mg/dL Urine Occult Blood NEG Urine Nitrite NEG Urine Bilirubin NEG Urine Urobilinogen LESS THAN 2.0 MG/DL Urine Leukocyte Esterase SMALL Urine RBC LESS THAN 1 /hpf Urine WBC 4 /hpf Urine Squamous Epithelial Cells 1 /hpf Urine Hyaline Casts 2 /lpf Microscopic Urinalysis Comment CULT NOT INDICATED MDM Medical Decision Making Medical Screen Exam Complete: Yes Emergency Medical Condition: Yes Differential Diagnosis Electrolyte abnormality vs. UTI vs. dehydration Narrative Course 51yo F with history of seizure here after witnessed seizure. Denies any head trauma. Labs reviewed, no leukocytosis. H/H normal. Glucose 166. Lipase normal. UA showed WBC 4. Culture not indicated. Pt given NS IVF, acetaminophen and keppra 1000mg IV. Pt has been observed in the ED for 3 hours and has not had any seizure. Pt has been at baseline mental status. Pt has neurologist to follow up with. Tolerating PO. Return precautions given. Diagnosis Primary Impression: Seizure Patient Instructions: General Instructions Departure Forms: Tests/Procedures Additional Instructions: Please follow up with your neurologist as outpatient. Please take your seizure medications as instructed by your physician. Return to the ED if symptoms worsen. Med/Other Pt SpecificInfo: No Change to Meds Disposition: 01 DISCHARGE HOME Condition: Stable Becca Syed DO Jul 31, 2017 23:27
[2017-07-31] MEDS ORDERED: SODIUM CHLOR 0.9% 1000 ML INJ 1,000 ML IV ONE (23:45)
[2017-07-31] MEDS ORDERED: ACETAMINOPHEN 325 MG TAB PO ONE (23:45)
[2017-07-31] MEDS ORDERED: levETIRAcetam INJ 100 ML IV ONE (23:45)
[2017-07-31] MEDS ORDERED: ONDANSETRON ODT 4 MG TAB PO ONE (23:45)
[2017-08-01 00:24] LABS: BASOPHIL # 0.1 TH/MM3 (0-0.2); BASOPHIL % 0.6 % (0.0-2.0); EOSINOPHIL % 0.6 % (0.0-4.0); HEMATOCRIT 36.2 % (35.0-46.0); HEMOGLOBIN 12.1 GM/DL (11.6-15.3); LYMPH % 40.5 % (9.0-44.0); LYMPHOCYTE # 3.3 TH/MM3 (1.0-4.8); MEAN CELL VOLUME 82.2 FL (80.0-100.0); MEAN CORPUSCULAR HEMOGLOBIN 27.6 PG (27.0-34.0); MEAN CORPUSCULAR HGB CONC 33.5 % (32.0-36.0); MEAN PLATELET VOLUME 9.2 FL (7.0-11.0); MONO % 8.6 % (0.0-8.0); MONOCYTE # 0.7 TH/MM3 (0-0.9); NEUT % 49.7 % (16.0-70.0); PLATELET COUNT 372 TH/MM3 (150-450); RED CELL DISTRIBUTION WIDTH 14.8 % (11.6-17.2); WHITE BLOOD COUNT 8.1 TH/MM3 (4.0-11.0)
[2017-08-01 00:29] LABS: ALKALINE PHOSPHATASE 139 U/L (45-117); TOTAL BILIRUBIN ADULT 0.2 MG/DL (0.2-1.0); TOTAL PROTEIN 7.7 GM/DL (6.4-8.2)
[2017-08-01 00:33] LABS: ALBUMIN 3.6 GM/DL (3.4-5.0); ALT (GPT) 17 U/L (10-53); AST (GOT) 19 U/L (15-37); BICARBONATE 23.4 MEQ/L (21.0-32.0); BLOOD UREA NITROGEN 17 MG/DL (7-18); CALCIUM 8.4 MG/DL (8.5-10.1); CREATININE 0.95 MG/DL (0.50-1.00); GLOMERULAR FILTRATION RATE 75 ML/MIN (>89); GLUCOSE,RANDOM 166 MG/DL (74-106); MAGNESIUM 2.3 MG/DL (1.5-2.5)
[2017-08-01 00:42] LABS: CHLORIDE 106 MEQ/L (98-107); SODIUM (NA) 140 MEQ/L (136-145)
[2017-08-01 01:08] LABS: BILIRUBIN, URINE NEG (NEG); BLOOD, URINE NEG (NEG); GLUCOSE,URINE 1000 mg/dL (NEG); HYALINE CAST, URINE 2 /lpf (RARE); KETONE, URINE NEG (NEG); NITRITE,URINE NEG (NEG); SQUAMOUS EPITHELIAL CELL URINE 1 /hpf (0-5); URINE COLOR LIGHT-YELLOW (YELLW/STRAW); URINE LEUKOCYTE ESTERASE SMALL (NEG)
== END 2017-08-01 03:07 | disposition home or self-care (01) ==
LOC: NEPC 23:04
DX: R56.9 Unspecified convulsions (principal); R51 Headache; R11.0 Nausea; E11.9 Type 2 diabetes mellitus without complications; J45.909 Unspecified asthma, uncomplicated; F41.8 Other specified anxiety disorders; I10 Essential (primary) hypertension; K21.9 Gastro-esophageal reflux disease without esophagitis; E78.00 Pure hypercholesterolemia, unspecified; Z79.84 Long term (current) use of oral hypoglycemic drugs; Z87.39 Personal history of other diseases of the musculoskeletal system and connective tissue
CPT/HCPCS: 80053; 81001; 83690; 83735; 85025; 96374; 99284; J1953; J7030